=== PATIENT | male | born 1970 | race Caucasian/White ===

== ENCOUNTER 2024-05-15 10:13 | Day surgery (SDC) | payer OTHER ==
[~2024-05-15] VITALS: Ht 180.3 cm; Wt 108.9 kg
[2024-05-15] MEDS ORDERED: MIDAZOLAM 2 MG/2 ML VIAL ONE (12:51)
[2024-05-15] MEDS ORDERED: LIDOCAINE 2% 100 MG/5 ML UJET TP ONE (12:51)
[2024-05-15] MEDS ORDERED: fentaNYL citrate 0.05 MG/ML VIAL ONE (12:51)
[2024-05-15] MEDS: fentaNYL citrate 0.05 MG/ML VIAL IVP ONE (13:14)
== END 2024-05-15 14:50 | disposition home or self-care (01) ==
LOC: MDS 10:13 → MMU 10:31 → MDS 14:50
PROVIDERS: ATTEND Internal Medicine Gastroenterology
DX: K62.5 Hemorrhage of anus and rectum (principal); I10 Essential (primary) hypertension; K63.5 Polyp of colon; K64.4 Residual hemorrhoidal skin tags; Z79.899 Other long term (current) drug therapy
CPT/HCPCS: 45385; J3010; J2250